=== PATIENT | male | born 1990 | race African-American/Black ===

== ENCOUNTER 2017-01-15 22:57 | Emergency (ER) | payer MEDICAID, OTHER ==
[~2017-01-15] VITALS: Ht 177.8 cm; Wt 77.0 kg
[~2017-01-15 22:57] MED LIST: ALBUTEROL
[2017-01-15 23:09] VITALS: BP 124/80
== END 2017-01-15 23:10 | disposition left against medical advice (07) ==
LOC: ER 22:58
DX: R06.02 Shortness of breath (principal); Z53.21 Procedure and treatment not carried out due to patient leaving prior to being seen by health care provider

== ENCOUNTER 2021-05-28 02:31 | Emergency (ER) | payer MEDICAID, OTHER ==
[~2021-05-28] VITALS: Ht 170.2 cm; Wt 64.0 kg
[2021-05-28] MEDS ORDERED: VISCOUS LIDOCAINE 2% 15 ML UDC PO STA (03:31)
[2021-05-28] MEDS ORDERED: MAGNESIUM/ALUMINUM HYDROXIDE/SIMETHICONE 30ML UDC PO STA (03:31)
[2021-05-28 03:57] LABS: BASOPHILS % 0.3 % (0.0-2.0); EOSINOPHILS % 2.3 % (0.0-5.0); HEMATOCRIT. 40.9 % (42.0-52.0); HEMOGLOBIN. 13.7 g/dL (14.0-18.0); MEAN CORPUSCULAR HEMOGLOBIN 31.1 pg (28.0-32.0); MEAN PLATELET VOLUME 9.1 fl (7.4-10.4); MONOCYTES % 10.6 % (2.0-8.0); NEUTROPHILS % 74.8 % (40.0-76.0); PLATELET 180 x1000/uL (130-400); RED CELL DISTRIBUTION WIDTH 15.5 % (11.6-14.6)
[2021-05-28 04:14] LABS: CHLORIDE 108 mEq/L (98-107)
[2021-05-28 04:18] LABS: ETHANOL BLOOD < 10 mg/dL
[2021-05-28 04:40] VITALS: BP 113/79
== END 2021-05-28 04:41 | disposition home or self-care (01) ==
LOC: ER 02:31
DX: R10.10 Upper abdominal pain, unspecified (principal); R94.5 Abnormal results of liver function studies; F12.10 Cannabis abuse, uncomplicated; J45.909 Unspecified asthma, uncomplicated
CPT/HCPCS: 36415; 80053; 80320; 85025; 99283; G0480